=== PATIENT | male | born 1950 | race Caucasian/White ===

== ENCOUNTER → 2019-06-07 | Outpatient (CLI) | payer BC ==
[~2019-06-07] MED LIST: CHLORDIAZEPOXI1 EACH PO; DIATRIZOATE MEGL/DIATRIZOA SOD 30 ML BTL PO ONE; FLOMAX0.4 MG PO; LEVAQUIN500 MG PO; LOPERAMIDE2 MG PO; METRONIDAZOLE500 MG PO; OMEPRAZOLE40 MG PO; OXYBUTYNIN CHLOR5 MG PO; TYLENOL WITH C1 EACH PO
--- NOTE | 2019-06-07 17:21 | Diagnostic Imaging Report ---
TECHNIQUE: CT of the abdomen and pelvis WITHOUT intravenous contrast and WITH oral contrast. Dose modulation, iterative reconstruction, and/or weight-based adjustment of the mA/kV was utilized to reduce the radiation dose to as low as reasonably achievable. INDICATION: ^[id number] ^1600 ^RIGHT LOWER QUADRANT PAIN. COMPARISON: CT from 12/18/2016. FINDINGS: ABSENCE OF INTRAVENOUS CONTRAST DECREASES SENSITIVITY FOR DETECTION OF FOCAL LESIONS AND VASCULAR PATHOLOGY. LOWER THORAX: Unremarkable. HEPATOBILIARY: Diffusely decreased attenuation of the liver. No focal hepatic lesions. Mild decreased attenuation in the gallbladder. No biliary ductal dilatation. SPLEEN: No splenomegaly. PANCREAS: No focal masses or ductal dilatation. ADRENALS: No adrenal nodules. KIDNEYS/URETERS: No hydronephrosis or exophytic masses. Unchanged left lower pole parapelvic renal cysts. The left renal and ureteral stones have passed. 2 nonobstructing right renal stones measure up to 2 mm. PELVIC ORGANS/BLADDER: Unremarkable. PERITONEUM/RETROPERITONEUM: No free air or fluid. Small, fat filled umbilical hernia. LYMPH NODES: No lymphadenopathy. VESSELS: Mild aortoiliac calcification. GI TRACT: No distention or wall thickening. There is a questionable filling defect in the terminal ileum as seen on coronal image 40 which measures 2.4 cm. Mild diverticulosis of the sigmoid colon. The appendix is normal. Small, sliding hilum hernia. BONES AND SOFT TISSUES: Leftward convex curvature of the lumbar spine. Moderate degenerative disc changes of the lumbar spine. IMPRESSION: 1. No definite explanation for the right lower quadrant abdominal pain on the CT. Specifically, the appendix is normal. 2. There is a questionable filling defect in the terminal ileum which measures 2.4 cm. There is no debris seen throughout the rest of the ileum, so a polyp is possible. Further evaluation with CT enterography is recommended on a nonemergent basis. This does not have the typical morphology of intussusception, and no diverticulum was seen in this region on the prior examination, so an inverted diverticulum is unlikely. 3. Diffuse fatty infiltration of the liver. 4. The mildly increased attenuation in the gallbladder may be due to sludge but is indeterminate. Signed by: Tez Rojo JR, MD on 06/07/2019 5:18 PM
== END ==
LOC: CT 14:06
PROVIDERS: ATTEND Internal Medicine
DX: R10.31 Right lower quadrant pain (principal)
CPT/HCPCS: 74176

== ENCOUNTER 2021-09-08 11:38 | Inpatient (IN) | payer BC ==
[~2021-09-08] VITALS: Ht 180.3 cm; Wt 100.7 kg
[~2021-09-08 11:38] MED LIST changes: -DIATRIZOATE MEGL/DIATRIZOA SOD 30 ML BTL PO ONE
[2021-09-08] MEDS ORDERED: CEFEPIME 2 GM in SODIUM CHLORIDE 0.9% 100 ML IV ONE (12:15)
[2021-09-08] MEDS ORDERED: Vancomycin IV 1 GM in SODIUM CHLORIDE 0.9% 250ML 250 ML IV ONE (12:15)
[2021-09-08 12:22] LABS: BASOPHILS # (AUTO) 0.1 (0.0-0.1); BASOPHILS % 1.3 % (0.0-1.0); EOSINOPHILS # (AUTO) 0.4 (0.0-0.4); EOSINOPHILS % 5.3 % (0.0-6.0); HEMATOCRIT 42.4 % (38.2-49.6); HEMOGLOBIN 13.5 g/dL (14.0-18.0); LYMPHOCYTES # (AUTO) 2.2 (1.0-3.2); LYMPHOCYTES % 28.7 % (18.0-39.1); MEAN CORPUSCULAR HEMOGLOBIN 32.5 pg (28-32); MEAN CORPUSCULAR HGB CONC 31.8 g/dL (31-35); MEAN CORPUSCULAR VOLUME 102.2 fL (81-99); MONOCYTES # (AUTO) 0.8 (0.2-0.8); MONOCYTES % 10.2 % (4.4-11.3); NEUTROPHILS # (AUTO) 4.2 (2.1-6.9); NEUTROPHILS % 54.2 % (38.7-80.0); PLATELET COUNT 271 x10e3/uL (140-360); RED BLOOD COUNT 4.15 x10e6/uL (4.3-5.7); RED CELL DISTRIBUTION WIDTH 12.3 % (11.7-14.4)
[2021-09-08] MEDS ORDERED: VESICARE5 MG PO (12:25)
[2021-09-08] MEDS ORDERED: ASPIRIN81 MG PO (12:25)
[2021-09-08] MEDS ORDERED: CICLOPIROX15 GM TOP ×2 (12:25)
[2021-09-08] MEDS ORDERED: XARELTO20 MG PO (12:25)
[2021-09-08] MEDS ORDERED: RANEXA500 MG PO (12:25)
[2021-09-08] MEDS ORDERED: AMLODIPINE BESYL5 MG PO (12:25)
[2021-09-08] MEDS ORDERED: FLOMAX0.4 MG PO (12:25)
[2021-09-08] MEDS ORDERED: LOSARTAN POTASS25 MG PO (12:25)
[2021-09-08] MEDS ORDERED: CLOPIDOGREL75 MG PO (12:25)
[2021-09-08] MEDS ORDERED: METOPROLOL SUCC50 MG PO (12:25)
[2021-09-08] MEDS ORDERED: ATORVASTATIN CA20 MG PO (12:25)
[2021-09-08] MEDS ORDERED: CLINDAMYCIN HC300 MG PO (12:29)
[2021-09-08] MEDS ORDERED: STROMECTOL3 MG PO (12:29)
[2021-09-08 12:35] LABS: INR 1.14; PROTHROMBIN TIME 15.5 seconds (11.9-14.5)
[2021-09-08 12:36] LABS: PARTIAL THROMBOPLASTIN TIME 45.1 seconds (23.8-35.5)
[2021-09-08 12:41] LABS: CREATINE KINASE 101 IU/L (30-200); MAGNESIUM 2.1 MG/DL (1.3-2.1)
[2021-09-08 12:43] LABS: ALBUMIN 4.2 g/dL (3.5-5.0); ALBUMIN/GLOBULIN RATIO 1.5 (0.8-2.0); ANION GAP 13.1 mmol/L (8-16); CALCIUM 9.2 mg/dL (8.4-10.2); CREATININE, SERUM 0.84 mg/dL (0.72-1.25); POTASSIUM 4.1 mmol/L (3.5-5.1)
[2021-09-08] MEDS ORDERED: Morphine 4mg Syringe 4 MG/ML INJ IV PRN (13:45)
[2021-09-08] MEDS ORDERED: ONDANSETRON HCL INJ 2MG/ML 2ML 2 MG/ML VIAL IV PRN (13:45)
[2021-09-08] MEDS: Vancomycin IV 1 GM in SODIUM CHLORIDE 0.9% 250ML 250 ML IV SCH (14:10)
[2021-09-08] MEDS: SODIUM CHLORIDE 0.9% 1000ML 1,000 ML IV SCH (14:18)
[2021-09-08 15:19] VITALS: BP 147/76
[2021-09-08 15:22] VITALS: BP 147/76
[2021-09-08] MEDS ORDERED: MUPIROCIN22 GM TOP (15:33)
[2021-09-08] MEDS ORDERED: HYDROXYZINE HCL10 MG PO (15:33)
[2021-09-08 15:40] VITALS: BP 147/76
[2021-09-08] MEDS ORDERED: PNEUMOCOCCAL VACCINE POLYVALENT 23 MCG/0.5 ML VIAL IM ONE (17:00)
[2021-09-08] MEDS ORDERED: HYDROXYZINE HCL 10 MG TAB PO PRN (18:45)
[2021-09-08 19:56] VITALS: BP 123/67
[2021-09-08 21:00] VITALS: BP 123/67
[2021-09-08] MEDS: ATORVASTATIN 20 MG TAB PO SCH (21:02)
[2021-09-08] MEDS: CEFEPIME 2 GM in SODIUM CHLORIDE 0.9% 100 ML IV SCH (21:02)
[2021-09-09] VITALS (8 sets, daily range): BP systolic 103–150; BP diastolic 51–66
[2021-09-09] MEDS: SODIUM CHLORIDE 0.9% 1000ML 1,000 ML IV SCH (02:37)
[2021-09-09] MEDS ORDERED: ZOLPIDEM TARTRATE 10 MG TAB PO PRN (05:00)
[2021-09-09 06:09] LABS: BASOPHILS # (AUTO) 0.1 (0.0-0.1); BASOPHILS % 1.9 % (0.0-1.0); EOSINOPHILS # (AUTO) 0.4 (0.0-0.4); EOSINOPHILS % 7.7 % (0.0-6.0); HEMATOCRIT 38.3 % (38.2-49.6); LYMPHOCYTES # (AUTO) 1.3 (1.0-3.2); LYMPHOCYTES % 23.2 % (18.0-39.1); MEAN CORPUSCULAR HEMOGLOBIN 31.9 pg (28-32); MEAN CORPUSCULAR HGB CONC 31.3 g/dL (31-35); MEAN CORPUSCULAR VOLUME 101.9 fL (81-99); MONOCYTES # (AUTO) 0.6 (0.2-0.8); MONOCYTES % 10.8 % (4.4-11.3); NEUTROPHILS # (AUTO) 3.2 (2.1-6.9); NEUTROPHILS % 56.1 % (38.7-80.0); PLATELET COUNT 232 x10e3/uL (140-360); RED BLOOD COUNT 3.76 x10e6/uL (4.3-5.7); RED CELL DISTRIBUTION WIDTH 12.3 % (11.7-14.4)
[2021-09-09 06:59] LABS: ALBUMIN 3.2 g/dL (3.5-5.0); ALBUMIN/GLOBULIN RATIO 1.3 (0.8-2.0); ANION GAP 11.2 mmol/L (8-16); CALCIUM 9.1 mg/dL (8.4-10.2); CREATININE, SERUM 0.83 mg/dL (0.72-1.25); POTASSIUM 4.2 mmol/L (3.5-5.1)
[2021-09-09] MEDS: TAMSULOSIN HCL 0.4 MG CAP PO SCH (08:07)
[2021-09-09] MEDS: ASPIRIN 81 MG CHEW TAB PO SCH (08:07)
[2021-09-09] MEDS: RANOLAZINE 500 MG TABSR PO SCH ×2 (08:07→16:40)
[2021-09-09] MEDS: CLOPIDOGREL BISULFATE 75 MG TAB PO SCH (08:07)
[2021-09-09] MEDS: LOSARTAN POTASSIUM 25 MG TAB PO SCH (08:08)
[2021-09-09] MEDS: CEFEPIME 2 GM in SODIUM CHLORIDE 0.9% 100 ML IV SCH ×2 (08:08→21:14)
[2021-09-09] MEDS: SOLIFENACIN SUCCINATE 5 MG TAB PO SCH (08:08)
[2021-09-09] MEDS: CICLOPIROX OLAMINE 077% CREAM 15 GM TUBE TOP SCH ×2 (08:52→15:07)
[2021-09-09] MEDS: MUPIROCIN 2% OINT 22 GM TUBE TOP SCH ×2 (11:00→16:25)
[2021-09-09] MEDS: RIVAROXABAN 20 MG TABLET PO SCH (11:15)
[2021-09-09] MEDS: AMLODIPINE BESYLATE 5 MG TAB PO SCH (11:15)
[2021-09-09] MEDS: METOPROLOL SUCCINATE 50 MG TAB XL PO SCH (11:15)
[2021-09-09] MEDS: Vancomycin IV 1 GM in SODIUM CHLORIDE 0.9% 250ML 250 ML IV SCH (11:19)
[2021-09-09] MEDS: ACETAMINOPHEN 325 MG TAB PO PRN (17:00)
[2021-09-09] MEDS: ATORVASTATIN 20 MG TAB PO SCH (21:14)
[2021-09-09] MEDS ORDERED: SODIUM CHLORIDE 0.9% 250ML 250 ML ONE (21:27)
[2021-09-10] VITALS (7 sets, daily range): BP systolic 125–135; BP diastolic 55–80
[2021-09-10] MEDS: Vancomycin IV 1 GM in SODIUM CHLORIDE 0.9% 250ML 250 ML IV SCH ×2 (00:44→12:00)
[2021-09-10] MEDS: ACETAMINOPHEN 325 MG TAB PO PRN ×2 (04:55→21:30)
[2021-09-10] MEDS: CICLOPIROX OLAMINE 077% CREAM 15 GM TUBE TOP SCH ×2 (09:00→16:57)
[2021-09-10] MEDS: CLOPIDOGREL BISULFATE 75 MG TAB PO SCH (09:34)
[2021-09-10] MEDS: CEFEPIME 2 GM in SODIUM CHLORIDE 0.9% 100 ML IV SCH ×2 (09:34→21:28)
[2021-09-10] MEDS: ASPIRIN 81 MG CHEW TAB PO SCH (09:34)
[2021-09-10] MEDS: TAMSULOSIN HCL 0.4 MG CAP PO SCH (09:34)
[2021-09-10] MEDS: AMLODIPINE BESYLATE 5 MG TAB PO SCH (09:34)
[2021-09-10] MEDS: LOSARTAN POTASSIUM 25 MG TAB PO SCH (09:34)
[2021-09-10] MEDS: RIVAROXABAN 20 MG TABLET PO SCH (09:35)
[2021-09-10] MEDS: SOLIFENACIN SUCCINATE 5 MG TAB PO SCH (09:35)
[2021-09-10] MEDS: RANOLAZINE 500 MG TABSR PO SCH ×2 (09:35→16:57)
[2021-09-10] MEDS: METOPROLOL SUCCINATE 50 MG TAB XL PO SCH (09:35)
[2021-09-10] MEDS: BACITRACIN ZINC 15 GM OINT TOP SCH (11:47)
[2021-09-10] MEDS ORDERED: ONDANSETRON HCL 4 MG ORAL DISINTEGRATING TAB PO PRN (13:00)
[2021-09-10] MEDS: ATORVASTATIN 20 MG TAB PO SCH (21:29)
[2021-09-11] VITALS (7 sets, daily range): BP systolic 117–150; BP diastolic 47–85
[2021-09-11] MEDS: Vancomycin IV 1 GM in SODIUM CHLORIDE 0.9% 250ML 250 ML IV SCH ×2 (02:37→12:00)
[2021-09-11] MEDS: AMLODIPINE BESYLATE 5 MG TAB PO SCH (09:29)
[2021-09-11] MEDS: CLOPIDOGREL BISULFATE 75 MG TAB PO SCH (09:29)
[2021-09-11] MEDS: ASPIRIN 81 MG CHEW TAB PO SCH (09:29)
[2021-09-11] MEDS: LOSARTAN POTASSIUM 25 MG TAB PO SCH (09:29)
[2021-09-11] MEDS: CEFEPIME 2 GM in SODIUM CHLORIDE 0.9% 100 ML IV SCH ×2 (09:29→21:37)
[2021-09-11] MEDS: TAMSULOSIN HCL 0.4 MG CAP PO SCH (09:29)
[2021-09-11] MEDS: METOPROLOL SUCCINATE 50 MG TAB XL PO SCH (09:30)
[2021-09-11] MEDS: RANOLAZINE 500 MG TABSR PO SCH ×2 (09:30→17:00)
[2021-09-11] MEDS: RIVAROXABAN 20 MG TABLET PO SCH (09:30)
[2021-09-11] MEDS: SOLIFENACIN SUCCINATE 5 MG TAB PO SCH (09:30)
[2021-09-11] MEDS: BACITRACIN ZINC 15 GM OINT TOP SCH (10:32)
[2021-09-11] MEDS: CICLOPIROX OLAMINE 077% CREAM 15 GM TUBE TOP SCH ×2 (10:32→17:00)
[2021-09-11] MEDS: ACETAMINOPHEN 325 MG TAB PO PRN (15:50)
[2021-09-11] MEDS: ATORVASTATIN 20 MG TAB PO SCH (21:37)
[2021-09-12] VITALS (8 sets, daily range): BP systolic 123–139; BP diastolic 54–70
[2021-09-12] MEDS: Vancomycin IV 1 GM in SODIUM CHLORIDE 0.9% 250ML 250 ML IV SCH ×2 (01:11→12:10)
[2021-09-12] MEDS: CLOPIDOGREL BISULFATE 75 MG TAB PO SCH (09:10)
[2021-09-12] MEDS: AMLODIPINE BESYLATE 5 MG TAB PO SCH (09:10)
[2021-09-12] MEDS: TAMSULOSIN HCL 0.4 MG CAP PO SCH (09:10)
[2021-09-12] MEDS: ASPIRIN 81 MG CHEW TAB PO SCH (09:10)
[2021-09-12] MEDS: CEFEPIME 2 GM in SODIUM CHLORIDE 0.9% 100 ML IV SCH ×2 (09:10→22:06)
[2021-09-12] MEDS: LOSARTAN POTASSIUM 25 MG TAB PO SCH (09:10)
[2021-09-12] MEDS: RIVAROXABAN 20 MG TABLET PO SCH (09:11)
[2021-09-12] MEDS: RANOLAZINE 500 MG TABSR PO SCH ×2 (09:11→17:07)
[2021-09-12] MEDS: METOPROLOL SUCCINATE 50 MG TAB XL PO SCH (09:11)
[2021-09-12] MEDS: SOLIFENACIN SUCCINATE 5 MG TAB PO SCH (09:11)
[2021-09-12] MEDS: ACETAMINOPHEN 325 MG TAB PO PRN (09:35)
[2021-09-12] MEDS: CICLOPIROX OLAMINE 077% CREAM 15 GM TUBE TOP SCH ×2 (09:41→17:07)
[2021-09-12] MEDS: BACITRACIN ZINC 15 GM OINT TOP SCH (09:41)
[2021-09-12] MEDS: ATORVASTATIN 20 MG TAB PO SCH (22:06)
[2021-09-13] VITALS (8 sets, daily range): BP systolic 110–149; BP diastolic 57–75
[2021-09-13] MEDS: Vancomycin IV 1 GM in SODIUM CHLORIDE 0.9% 250ML 250 ML IV SCH ×3 (02:14→23:49)
[2021-09-13 05:53] LABS: BASOPHILS # (AUTO) 0.1 (0.0-0.1); BASOPHILS % 1.7 % (0.0-1.0); EOSINOPHILS # (AUTO) 0.5 (0.0-0.4); EOSINOPHILS % 7.3 % (0.0-6.0); HEMATOCRIT 39.2 % (38.2-49.6); HEMOGLOBIN 12.8 g/dL (14.0-18.0); LYMPHOCYTES # (AUTO) 1.8 (1.0-3.2); LYMPHOCYTES % 27.6 % (18.0-39.1); MEAN CORPUSCULAR HEMOGLOBIN 32.1 pg (28-32); MEAN CORPUSCULAR HGB CONC 32.7 g/dL (31-35); MEAN CORPUSCULAR VOLUME 98.2 fL (81-99); MONOCYTES # (AUTO) 0.6 (0.2-0.8); MONOCYTES % 9.9 % (4.4-11.3); NEUTROPHILS # (AUTO) 3.4 (2.1-6.9); PLATELET COUNT 239 x10e3/uL (140-360); RED BLOOD COUNT 3.99 x10e6/uL (4.3-5.7); RED CELL DISTRIBUTION WIDTH 12.1 % (11.7-14.4)
[2021-09-13 06:26] LABS: ALBUMIN 3.4 g/dL (3.5-5.0); ALBUMIN/GLOBULIN RATIO 1.4 (0.8-2.0); ANION GAP 12.5 mmol/L (8-16); CALCIUM 8.6 mg/dL (8.4-10.2); CREATININE, SERUM 0.87 mg/dL (0.72-1.25); POTASSIUM 4.5 mmol/L (3.5-5.1)
[2021-09-13] MEDS: CEFEPIME 2 GM in SODIUM CHLORIDE 0.9% 100 ML IV SCH ×2 (08:42→20:20)
[2021-09-13] MEDS: ASPIRIN 81 MG CHEW TAB PO SCH (08:45)
[2021-09-13] MEDS: CLOPIDOGREL BISULFATE 75 MG TAB PO SCH (08:46)
[2021-09-13] MEDS: TAMSULOSIN HCL 0.4 MG CAP PO SCH (08:46)
[2021-09-13] MEDS: LOSARTAN POTASSIUM 25 MG TAB PO SCH (08:46)
[2021-09-13] MEDS: AMLODIPINE BESYLATE 5 MG TAB PO SCH (08:46)
[2021-09-13] MEDS: METOPROLOL SUCCINATE 50 MG TAB XL PO SCH (08:47)
[2021-09-13] MEDS: RANOLAZINE 500 MG TABSR PO SCH ×2 (08:47→17:13)
[2021-09-13] MEDS: CICLOPIROX OLAMINE 077% CREAM 15 GM TUBE TOP SCH ×2 (08:48→17:12)
[2021-09-13] MEDS: RIVAROXABAN 20 MG TABLET PO SCH (08:48)
[2021-09-13] MEDS: SOLIFENACIN SUCCINATE 5 MG TAB PO SCH (08:48)
[2021-09-13] MEDS: BACITRACIN ZINC 15 GM OINT TOP SCH (08:48)
[2021-09-13] MEDS: ATORVASTATIN 20 MG TAB PO SCH (20:20)
[2021-09-14] VITALS (9 sets, daily range): BP systolic 125–142; BP diastolic 58–84
[2021-09-14] MEDS: CEFEPIME 2 GM in SODIUM CHLORIDE 0.9% 100 ML IV SCH ×2 (08:38→20:53)
[2021-09-14] MEDS: ASPIRIN 81 MG CHEW TAB PO SCH (08:38)
[2021-09-14] MEDS: LOSARTAN POTASSIUM 25 MG TAB PO SCH (08:39)
[2021-09-14] MEDS: TAMSULOSIN HCL 0.4 MG CAP PO SCH (08:40)
[2021-09-14] MEDS: AMLODIPINE BESYLATE 5 MG TAB PO SCH (08:40)
[2021-09-14] MEDS: CLOPIDOGREL BISULFATE 75 MG TAB PO SCH (08:41)
[2021-09-14] MEDS: RANOLAZINE 500 MG TABSR PO SCH ×2 (08:41→16:36)
[2021-09-14] MEDS: SOLIFENACIN SUCCINATE 5 MG TAB PO SCH (08:42)
[2021-09-14] MEDS: METOPROLOL SUCCINATE 50 MG TAB XL PO SCH (08:42)
[2021-09-14] MEDS: CICLOPIROX OLAMINE 077% CREAM 15 GM TUBE TOP SCH ×2 (08:43→16:36)
[2021-09-14] MEDS: RIVAROXABAN 20 MG TABLET PO SCH (08:43)
[2021-09-14] MEDS: BACITRACIN ZINC 15 GM OINT TOP SCH (08:43)
[2021-09-14] MEDS ORDERED: COLLAGENASE 5 GM TUBE TP SCH (09:00)
[2021-09-14] MEDS: Vancomycin IV 1 GM in SODIUM CHLORIDE 0.9% 250ML 250 ML IV SCH ×2 (12:57→23:41)
[2021-09-14] MEDS: ATORVASTATIN 20 MG TAB PO SCH (20:53)
[2021-09-14] MEDS: ACETAMINOPHEN 325 MG TAB PO PRN (20:54)
[2021-09-15 04:00] VITALS: BP 122/63
[2021-09-15 08:00] VITALS: BP 154/89
[2021-09-15] MEDS: ASPIRIN 81 MG CHEW TAB PO SCH (08:44)
[2021-09-15] MEDS: RIVAROXABAN 20 MG TABLET PO SCH (08:45)
[2021-09-15] MEDS: LOSARTAN POTASSIUM 25 MG TAB PO SCH (08:45)
[2021-09-15] MEDS: SOLIFENACIN SUCCINATE 5 MG TAB PO SCH (08:45)
[2021-09-15] MEDS: AMLODIPINE BESYLATE 5 MG TAB PO SCH (08:45)
[2021-09-15] MEDS: METOPROLOL SUCCINATE 50 MG TAB XL PO SCH (08:45)
[2021-09-15] MEDS: CLOPIDOGREL BISULFATE 75 MG TAB PO SCH (08:45)
[2021-09-15] MEDS: TAMSULOSIN HCL 0.4 MG CAP PO SCH (08:45)
[2021-09-15] MEDS: RANOLAZINE 500 MG TABSR PO SCH (08:45)
[2021-09-15 08:54] VITALS: BP 154/89
== END 2021-09-15 09:08 | disposition home or self-care (01) | DRG 603 ==
LOC: ER 11:41 → ERHOLD 13:34 → IMCU 14:59 → MED/SURG3 09-09 18:32
PROVIDERS: ADMIT Internal Medicine; ATTEND Internal Medicine
DX: L03.115 Cellulitis of right lower limb (principal); I25.10 Atherosclerotic heart disease of native coronary artery without angina pectoris; I73.9 Peripheral vascular disease, unspecified; N40.0 Benign prostatic hyperplasia without lower urinary tract symptoms; I10 Essential (primary) hypertension; E78.00 Pure hypercholesterolemia, unspecified; E78.5 Hyperlipidemia, unspecified; E66.9 Obesity, unspecified; Z82.49 Family history of ischemic heart disease and other diseases of the circulatory system; Z88.1 Allergy status to other antibiotic agents; Z88.8 Allergy status to other drugs, medicaments and biological substances; Z68.31 Body mass index [BMI] 31.0-31.9, adult; Z95.5 Presence of coronary angioplasty implant and graft; D64.9 Anemia, unspecified; Z20.822 Contact with and (suspected) exposure to COVID-19
CPT/HCPCS: 36415; 80053; 80202; 82550; 82553; 83735; 83880; 84484; 85025; 85610; 85730; 87040; 90732; 93971; 94799; 99251; 99284; J0692; J3370; J3410; J7030; J7050; U0002

== ENCOUNTER 2022-02-28 07:36 | Emergency (ER) | payer MEDICARE, OTHER ==
[~2022-02-28] VITALS: Ht 180.3 cm; Wt 100.7 kg
[~2022-02-28 07:36] MED LIST changes: +AMLODIPINE BESYL5 MG PO; +ASPIRIN81 MG PO; +ATORVASTATIN CA20 MG PO; +CICLOPIROX15 GM TOP; +CLINDAMYCIN HC300 MG PO; +CLOPIDOGREL75 MG PO; +HYDROXYZINE HCL10 MG PO; +LOSARTAN POTASS25 MG PO; +METOPROLOL SUCC50 MG PO; +MUPIROCIN22 GM TOP; +RANEXA500 MG PO; +STROMECTOL3 MG PO; +VESICARE5 MG PO; +XARELTO20 MG PO
[2022-02-28] MEDS ORDERED: KETOROLAC TROMETHAMINE 30 MG/ML VIAL IM STA (07:53)
[2022-02-28] MEDS ORDERED: MELOXICAM7.5 MG PO ×2 (07:58→08:12)
[2022-02-28] MEDS ORDERED: LIDOCAINE1 EAC1 EXT ×2 (07:59→08:12)
[2022-02-28] MEDS ORDERED: LIDOCAINE 4% PATCH TP SCH (09:00)
== END 2022-02-28 08:45 | disposition home or self-care (01) ==
LOC: ER 07:56
DX: M79.651 Pain in right thigh (principal); S76.811A Strain of other specified muscles, fascia and tendons at thigh level, right thigh, initial encounter; X50.1XXA Overexertion from prolonged static or awkward postures, initial encounter; Y92.89 Other specified places as the place of occurrence of the external cause; K21.9 Gastro-esophageal reflux disease without esophagitis; Z85.89 Personal history of malignant neoplasm of other organs and systems
CPT/HCPCS: 99283

== ENCOUNTER 2022-03-02 09:31 | Emergency (ER) | payer MEDICARE, OTHER ==
[~2022-03-02] VITALS: Ht 180.3 cm; Wt 100.7 kg
[~2022-03-02 09:31] MED LIST changes: +LIDOCAINE1 EAC1 EXT; +MELOXICAM7.5 MG PO
== END 2022-03-02 11:45 | disposition home or self-care (01) ==
LOC: ER 09:36
DX: S70.11XA Contusion of right thigh, initial encounter (principal); S76.811A Strain of other specified muscles, fascia and tendons at thigh level, right thigh, initial encounter; X50.1XXA Overexertion from prolonged static or awkward postures, initial encounter; Y92.89 Other specified places as the place of occurrence of the external cause; K21.9 Gastro-esophageal reflux disease without esophagitis; Z85.828 Personal history of other malignant neoplasm of skin
CPT/HCPCS: 93970; 99283

== ENCOUNTER 2024-10-04 12:06 | Observation (INO) | payer MEDICARE, OTHER ==
[2024-09-30 12:29] LABS: BASOPHILS # (AUTO) 0.1 (0.0-0.1); BASOPHILS % 0.9 % (0.0-1.0); EOSINOPHILS # (AUTO) 0.1 (0.0-0.4); EOSINOPHILS % 1.2 % (0.0-6.0); HEMATOCRIT 49.5 % (38.2-49.6); HEMOGLOBIN 15.3 g/dL (14.0-18.0); LYMPHOCYTES % 22.7 % (18.0-39.1); MEAN CORPUSCULAR HEMOGLOBIN 33.3 pg (28-32); MEAN CORPUSCULAR HGB CONC 30.9 g/dL (31-35); MEAN CORPUSCULAR VOLUME 107.8 fL (81-99); MONOCYTES # (AUTO) 0.6 (0.2-0.8); MONOCYTES % 6.8 % (4.4-11.3); NEUTROPHILS # (AUTO) 6.1 (2.1-6.9); NEUTROPHILS % 68.2 % (38.7-80.0); PLATELET COUNT 207 x10e3/uL (140-360); RED BLOOD COUNT 4.59 x10e6/uL (4.3-5.7); RED CELL DISTRIBUTION WIDTH 13.5 % (11.7-14.4); WHITE BLOOD COUNT 8.91 x10e3/uL (4.8-10.8)
[2024-09-30 12:51] LABS: ANION GAP 14.1 mmol/L (8-16); CALCIUM 9.4 mg/dL (8.4-10.2); CREATININE, SERUM 1.13 mg/dL (0.72-1.25); POTASSIUM 4.1 mmol/L (3.5-5.1)
[~2024-10-04] VITALS: Ht 175.3 cm; Wt 93.0 kg
[~2024-10-04 12:06] MED LIST changes: +ARICEPT10 MG PO; +DILTIAZEM 24HR120 M1 PO; +KEFLEX125 MG/5 M PO
[2024-10-04] MEDS: LACTATED RINGER'S 1,000 ML ONE (12:12)
[2024-10-04] MEDS: CEFAZOLIN SODIUM 2 GM ONE (12:12)
[2024-10-04] MEDS ORDERED: SEVOFLURANE INHAL SOLN 250 ML PEN BTL ONE (13:02)
[2024-10-04] MEDS ORDERED: ROCURONIUM BROMIDE 1 ML IV ONE (13:02)
[2024-10-04] MEDS ORDERED: FENTANYL CITRATE/PF 100MCG/2 ML INJ ONE (13:02)
[2024-10-04] MEDS ORDERED: LIDOCAINE HCL 2% LOCAL INJ 5 ML SDV VIAL INJ ONE (13:02)
[2024-10-04] MEDS ORDERED: ACETAMINOPHEN 1000 MG/100 ML 100 ML IV ONE (13:02)
[2024-10-04] MEDS ORDERED: PROPOFOL IV EMULSION 10 MG/ML 20 ML VIAL ONE (13:02)
[2024-10-04] MEDS ORDERED: ONDANSETRON HCL INJ 2MG/ML 2ML 2 MG/ML VIAL ONE (14:30)
[2024-10-04] MEDS ORDERED: DEXAMETHASONE SOD PHOS INJ 4 MG/ML SDV ONE (14:30)
[2024-10-04] MEDS ORDERED: SUGAMMADEX SODIUM 200 MG/2 ML VIAL IV ONE (14:42)
[2024-10-04] MEDS ORDERED: HYDROCODON-ACE1 EA11 PO (15:01)
[2024-10-04] MEDS ORDERED: ACETAMINOPHEN 325 MG TAB PO PRN (15:15)
[2024-10-04] MEDS ORDERED: ONDANSETRON HCL INJ 2MG/ML 2ML 2 MG/ML VIAL IV PRN (15:15)
[2024-10-04 16:22] VITALS: BP 145/77; PULSE 58; RESP 16; TEMP 97.8; O2SAT 94
[2024-10-04] MEDS: DEXTROSE 5%/0.45% SOD CHL 1,000 ML IV SCH (16:25)
[2024-10-04] MEDS: HYDROCODONE/APAP 5MG-325MG TAB PO PRN (16:25)
[2024-10-04 16:36] VITALS: BP_SYST 133; BP_SYST 145; BP_DIAS 65; BP_DIAS 77; PULSE 58; PULSE 63; RESP 16; RESP 18; TEMP 97.8; TEMP 97.9; O2SAT 93
[2024-10-04 17:25] VITALS: BP 136/63; PULSE 75; RESP 18; TEMP 97.9; O2SAT 93
[2024-10-04 21:00] VITALS: BP 123/63; PULSE 62; RESP 18; TEMP 97.4; O2SAT 95
[2024-10-05 03:51] VITALS: BP_SYST 123; BP_SYST 155; BP_DIAS 63; BP_DIAS 72; PULSE 94; RESP 18; TEMP 97.4; TEMP 97.5; O2SAT 94
[2024-10-05 08:00] VITALS: BP_SYST 108; BP_SYST 153; BP_DIAS 70; BP_DIAS 83; PULSE 80; PULSE 82; RESP 16; TEMP 97.3; TEMP 98.5; O2SAT 96; O2SAT 97
[2024-10-05 08:51] VITALS: BP 153/70; PULSE 82; RESP 16; TEMP 97.3; O2SAT 96
== END 2024-10-05 10:40 | disposition home or self-care (01) ==
LOC: OR 12:06 → PACU V 15:11 → MED/SURG 15:38
PROVIDERS: ADMIT Surgery; ATTEND Surgery
DX: K42.0 Umbilical hernia with obstruction, without gangrene (principal); I10 Essential (primary) hypertension; M19.91 Primary osteoarthritis, unspecified site; I25.10 Atherosclerotic heart disease of native coronary artery without angina pectoris; Z95.5 Presence of coronary angioplasty implant and graft; E78.5 Hyperlipidemia, unspecified; I48.91 Unspecified atrial fibrillation; K21.9 Gastro-esophageal reflux disease without esophagitis; K58.9 Irritable bowel syndrome, unspecified; F32.A Depression, unspecified; M06.9 Rheumatoid arthritis, unspecified; R48.0 Dyslexia and alexia; M54.2 Cervicalgia; M54.9 Dorsalgia, unspecified; Z85.828 Personal history of other malignant neoplasm of skin; Z95.818 Presence of other cardiac implants and grafts; Z95.828 Presence of other vascular implants and grafts; Z01.810 Encounter for preprocedural cardiovascular examination; Z01.812 Encounter for preprocedural laboratory examination; Z01.818 Encounter for other preprocedural examination; Z79.02 Long term (current) use of antithrombotics/antiplatelets; Z79.899 Other long term (current) drug therapy; Z79.82 Long term (current) use of aspirin
CPT/HCPCS: 36415; 49592; 71046; 80048; 85025; 93005; G0378 ×2; J0131; J1100; J2003; J2405; J2704; J3010; J7121